=== PATIENT | female | born 1985 | race Caucasian/White ===

== ENCOUNTER 2020-09-27 19:24 | Emergency (ER) | payer BC ==
--- NOTE | 2020-09-27 19:40 | EDM.PDOC ---
ED HPI GENERAL MEDICAL PROBLEM - General Chief Complaint: General Stated Complaint: Pain Time Seen by Provider: 09/27/20 19:40 Source of Information: Reports: Patient History Limitations: Reports: No Limitations - History of Present Illness INITIAL COMMENTS - FREE TEXT/NARRATIVE: Shonna, 34-year-old female, presents with right flank and right-sided abdominal pain. She denies fever or chills today. She is not taking anything for her pain She states yesterday she was having issues with bowel movement but had a good bowel movement roughly 7- 7:15 this evening. States gastric surgery last June with no sequela from that, recently had her final postoperative check and is doing well. No risk activity, or exposures to COVID-19. Onset Date: 09/26/20 Duration: Getting Worse Quality: Reports: Sharp, Stabbing Improves with: Reports: None Worsens with: Reports: Other (Time) Associated Symptoms: Reports: Nausea/Vomiting Right back and abdomen Pain Score (Numeric/FACES): 9 - Related Data Allergies Allergy/AdvReac Type Severity Reaction Status Date / Time No Known Drug Allergies Allergy Other Verified 09/27/20 19:40 Home Meds: Home Meds Fluconazole 150 mg PO WEEKLY 09/27/20 [History] Magnesium Hydroxide [Milk of Magnesia] 30 ml PO DAILY PRN 09/27/20 [History] Multivitamin 1 each PO ASDIRECTED 09/27/20 [History] Non-Formulary Medication [NF Drug] 1 applicful VAG ASDIRECTED 09/27/20 [History] Non-Formulary Medication [NF Drug] 1 each PO BID 09/27/20 [History] Omeprazole 20 mg PO DAILY 09/27/20 [History] Tamsulosin [Tamsulosin 24 Hr] 0.4 mg PO DAILY 14 Days #14 cap.er 09/27/20 [Rx] Past Medical History HEENT History: Reports: None Cardiovascular History: Reports: High Cholesterol Gastrointestinal History: Reports: Other (See Below) (Rayne en Y) 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 - Tobacco Use Tobacco Use Status *Q: Former Tobacco User Tobacco Use Within Last Twelve Months: No Used Tobacco, but Quit: Yes Smoking Cessation Information Provided To Patient: No Second Hand Smoke Exposure: No ED ROS GENERAL - Review of Systems Review Of Systems: Comprehensive ROS is negative, except as noted in HPI. ED EXAM, GENERAL - Physical Exam Exam: See Below Free Text/Narrative:: Alert, oriented, in mild painful distress unable to get comfortable. She states the pain is worse than childbirth. Pain to the right flank going down into the right groin. No cyanosis nor pallor is noted. PERRLA no icterus no injection. HEENT is negative discharge or deformity Moist mucous membranes Neck is soft supple no lymphadenopathy. Thorax is clear no wheezes, no crackles are noted. Cardiac is S1-S2 I do not appreciate murmur, no ectopic beats appreciated. Flank pain to the right to percussion she states is a deep pain negative on the left. Abdomen is soft bowel sounds are present there is tenderness in the right lateral gutter radiating downward with pain to palpation. There is no rebound tenderness. Slight pain to deep palpation of the left lower quadrant. There is no mass nor fullness appreciated over the suprapubic bladder region. She moves her extremities with no difficulty. Skin is warm and dry. Course - Vital Signs Last Recorded V/S: Last Vital Signs Temp 97.8 F 09/27/20 20:01 Pulse 77 09/27/20 20:30 Resp 14 09/27/20 20:30 BP 129/77 09/27/20 20:30 Pulse Ox 96 09/27/20 20:30 - Orders/Labs/Meds Orders: Active Orders 24 hr Category Date Time Status Peripheral IV Care [RC] . DIRECTED Care 09/27/20 19:50 Active Abdomen Pelvis wo Cont [CT] Stat Exams 09/27/20 20:17 Ordered Sodium Chloride 0.9% [Saline Flush] Med 09/27/20 19:50 Active 10 ml FLUSH Q8HR PRN Peripheral IV Insertion Adult [OM.PC] Routine Oth 09/27/20 19:50 Ordered Medication Orders Sodium Chloride (Saline Flush) 10 ml FLUSH Q8HR PRN PRN Reason: keep vein open Labs: Laboratory Tests 09/27/20 09/27/20 09/27/20 Range/Units 19:40 19:40 19:40 WBC 7.43 (5.00-10.00) 10^3/uL RBC 4.80 (3.80-5.50) 10^6/uL Hgb 14.6 (12.0-16.0) g/dL Hct 43.5 (37.0-47.0) % MCV 90.6 (82.0-92.0) fL MCH 30.4 (27.0-31.0) pg MCHC 33.6 (32.0-36.0) g/dL RDW 16.6 H (11.5-14.5) % Plt Count 261 D (150-400) 10^3/uL MPV 11.3 H (7.4-10.4) fL Immature Gran % (Auto) 0.1 (0.0-5.0) % Neut % (Auto) 62.9 (50.0-70.0) % Lymph % (Auto) 25.4 (20.0-40.0) % Wilkin % (Auto) 9.4 H (2.0-8.0) % Eos % (Auto) 1.9 (1.0-3.0) % Baso % (Auto) 0.3 (0.0-1.0) % Neut # (Auto) 4.67 (2.50-7.00) 10^3/uL Lymph # (Auto) 1.89 (1.00-4.00) 10^3/uL Wilkin # (Auto) 0.70 (0.10-0.80) 10^3/uL Eos # (Auto) 0.14 (0.10-0.30) 10^3/uL Baso # (Auto) 0.02 (0.00-0.10) 10^3/uL Immature Gran # (Auto) 0.01 (0.00-0.50) 10^3/uL Sodium 141 (136-145) mmol/L Potassium 3.3 L (3.5-5.1) mmol/L Chloride 103 (98-107) mmol/L Carbon Dioxide 22.7 (21.0-32.0) mmol/L Anion Gap 18.6 H (5-15) mmol/L BUN 8 (7-18) mg/dL Creatinine 0.66 (0.51-1.17) mg/dL Est Cr Clr Drug Dosing 108.07 mL/min Estimated GFR (MDRD) > 60 mL/min Glucose 89 (70-140) mg/dL Lactic Acid 1.0 (0.4-2.0) mmol/L Calcium 9.2 (8.7-10.3) mg/dL Total Bilirubin 0.4 (0.2-1.0) mg/dL AST 30 (15-37) U/L ALT 45 (14-63) U/L Alkaline Phosphatase 131 H (46-116) U/L Total Protein 7.3 (6.4-8.2) g/dL Albumin 3.50 (3.40-5.00) g/dL Amylase 61 (25-125) U/L Lipase 468 H (73-393) U/L HCG, Qual (NEGATIVE) Specimen Type Urine Color (YELLOW) Urine Appearance (CLEAR) Urine pH (5.0-9.0) Ur Specific [place] (1.005-1.030) Urine Protein (NEGATIVE) mg/dL Urine Glucose (UA) (NEGATIVE) mg/dL Urine Ketones (NEGATIVE) mg/dL Urine Occult Blood (NEGATIVE) Urine Nitrite (NEGATIVE) Urine Bilirubin (NEGATIVE) Urine Urobilinogen (0.2-1.0) E.U./dL Ur Leukocyte Esterase (NEGATIVE) Urine RBC (0-5) /HPF Urine WBC (0-5) /HPF Ur Epithelial Cells /LPF Urine Bacteria (NONE TO FEW) /HPF Urine Mucus (NEGATIVE) /LPF 09/27/20 09/27/20 Range/Units 19:40 20:00 WBC (5.00-10.00) 10^3/uL RBC (3.80-5.50) 10^6/uL Hgb (12.0-16.0) g/dL Hct (37.0-47.0) % MCV (82.0-92.0) fL MCH (27.0-31.0) pg MCHC (32.0-36.0) g/dL RDW (11.5-14.5) % Plt Count (150-400) 10^3/uL MPV (7.4-10.4) fL Immature Gran % (Auto) (0.0-5.0) % Neut % (Auto) (50.0-70.0) % Lymph % (Auto) (20.0-40.0) % Wilkin % (Auto) (2.0-8.0) % Eos % (Auto) (1.0-3.0) % Baso % (Auto) (0.0-1.0) % Neut # (Auto) (2.50-7.00) 10^3/uL Lymph # (Auto) (1.00-4.00) 10^3/uL Wilkin # (Auto) (0.10-0.80) 10^3/uL Eos # (Auto) (0.10-0.30) 10^3/uL Baso # (Auto) (0.00-0.10) 10^3/uL Immature Gran # (Auto) (0.00-0.50) 10^3/uL Sodium (136-145) mmol/L Potassium (3.5-5.1) mmol/L Chloride (98-107) mmol/L Carbon Dioxide (21.0-32.0) mmol/L Anion Gap (5-15) mmol/L BUN (7-18) mg/dL Creatinine (0.51-1.17) mg/dL Est Cr Clr Drug Dosing mL/min Estimated GFR (MDRD) mL/min Glucose (70-140) mg/dL Lactic Acid (0.4-2.0) mmol/L Calcium (8.7-10.3) mg/dL Total Bilirubin (0.2-1.0) mg/dL AST (15-37) U/L ALT (14-63) U/L Alkaline Phosphatase (46-116) U/L Total Protein (6.4-8.2) g/dL Albumin (3.40-5.00) g/dL Amylase (25-125) U/L Lipase (73-393) U/L HCG, Qual Negative (NEGATIVE) Specimen Type Urincc Urine Color Melanie H (YELLOW) Urine Appearance Cloudy H (CLEAR) Urine pH 6.0 (5.0-9.0) Ur Specific [place] >= 1.030 (1.005-1.030) Urine Protein 100 H (NEGATIVE) mg/dL Urine Glucose (UA) Negative (NEGATIVE) mg/dL Urine Ketones >=160 H (NEGATIVE) mg/dL Urine Occult Blood Large H (NEGATIVE) Urine Nitrite Negative (NEGATIVE) Urine Bilirubin Small H (NEGATIVE) Urine Urobilinogen 0.2 (0.2-1.0) E.U./dL Ur Leukocyte Esterase Negative (NEGATIVE) Urine RBC Semi-packed (0-5) /HPF Urine WBC 0-5 (0-5) /HPF Ur Epithelial Cells Few /LPF Urine Bacteria Rare (NONE TO FEW) /HPF Urine Mucus Rare H (NEGATIVE) /LPF Meds: Medications Generic Name Dose Route Start Last Admin Trade Name Freq PRN Reason Stop Dose Admin Sodium Chloride 10 ml 09/27/20 19:50 Saline Flush FLUSH Q8HR PRN keep vein open Discontinued Medications Generic Name Dose Route Start Last Admin Trade Name Freq PRN Reason Stop Dose Admin Hydrocodone Bitart/Acetaminophen 2 tab 09/27/20 21:09 09/27/20 21:59 [place] 325-10 Mg PO 09/27/20 21:10 2 tab ONETIME ONE Administration Sodium Chloride 1,000 mls @ 999 mls/hr 09/27/20 19:48 09/27/20 19:52 Normal Saline IV 09/27/20 20:48 999 mls/hr .BOLUS ONE Administration Sodium Chloride Confirm 09/27/20 19:49 09/27/20 19:54 Normal Saline Administered 09/27/20 19:50 Not Given Dose 1,000 mls @ as directed .ROUTE .STK-MED ONE Ketorolac Tromethamine 30 mg 09/27/20 19:44 09/27/20 19:58 Toradol IVPUSH 09/27/20 19:45 30 mg ONETIME ONE Administration Ketorolac Tromethamine 30 mg 09/27/20 20:53 09/27/20 20:56 Toradol IM 09/27/20 20:54 30 mg ONETIME ONE Administration Ketorolac Tromethamine Confirm 09/27/20 20:55 09/27/20 21:14 Toradol Administered 09/27/20 20:56 Not Given Dose 30 mg .ROUTE .STK-MED ONE Ondansetron HCl 8 mg 09/27/20 19:44 09/27/20 19:49 Zofran IVPUSH 09/27/20 19:45 8 mg ONETIME ONE Administration Ondansetron HCl 4 mg 09/27/20 22:01 Zofran IVPUSH 09/27/20 22:02 ONETIME ONE Tamsulosin HCl 0.4 mg 09/27/20 21:10 09/27/20 21:59 Flomax PO 09/27/20 21:11 0.4 mg ONETIME ONE Administration - Re-Assessments/Exams Free Text/Narrative Re-Assessment/Exam: 09/27/20 20:27 She states that she is now drinking 40 to 50 ounces of water daily secondary of reduced stomach capacity. Prior to the surgery she was drinking 100+ ounces a day. This fact likely increases risk of renal lithiasis in general, as well as history of her father having chronic renal lithiasis also. Free Text/Narrative Re-Assessment/Exam: 09/27/20 22:02 Pain is mildly improved in the back but still present in the lower right abdominal gutter. Nausea is returning as well. We will treat with ondanestron 4 mg IV before we pull the IV and will have her take her hydrocodone as soon as she gets home. Departure - Departure Time of Disposition: 21:52 Disposition: Home, Self-Care 01 Condition: Good Clinical Impression: Flank pain, acute, Renal lithiasis - Discharge Information *PRESCRIPTION DRUG MONITORING PROGRAM REVIEWED*: Not Applicable *COPY OF PRESCRIPTION DRUG MONITORING REPORT IN PATIENT FARHEEN: Not Applicable Prescriptions: Tamsulosin [Tamsulosin 24 Hr] 0.4 mg PO DAILY 14 Days #14 cap.er Instructions: Renal Colic, [id number], Kidney Stones, [id number], Flank Pain, Adult, [id number], Dietary Guidelines to Help Prevent Kidney Stones Forms: ED Department Discharge Additional Instructions: increase your water intake as much as you can tolerate. You will need to catch and strain all of your urine. We will give you 2 hydrocodone you may take 1 every 4-6 hours as needed for pain throughout the night. 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 Contact your clinic in the morning as if this does not show improvement consideration for chronic pain dispensing would be given as well as possibility of an ultrasound to determine the position of the stone thus avoiding repeated radiation from a CT scan. Contact your clinic in the morning to discuss reevaluation and pain medication options as well as the option of a renal ultrasound. Sepsis Event Note (ED) - Focused Exam Vital Signs: Vital Signs Temp Pulse Resp BP Pulse Ox 09/27/20 20:30 77 14 129/77 96 09/27/20 20:01 97.8 F 84 16 135/90 98 - Problem List & Annotations (1) Abdominal pain SNOMED Code(s): 47318973 Code(s): R10.9 - UNSPECIFIED ABDOMINAL PAIN Status: Acute Priority: High Qualifiers: Abdominal location: right lower quadrant Qualified Code(s): R10.31 - Right lower quadrant pain (2) Flank pain, acute SNOMED Code(s): 718598017, 807220508 Code(s): R10.9 - UNSPECIFIED ABDOMINAL PAIN Status: Acute Priority: High (3) History of bariatric surgery SNOMED Code(s): 507025893, 797763942 Code(s): Z98.84 - BARIATRIC SURGERY STATUS Status: Chronic Priority: Medium (4) Nausea alone SNOMED Code(s): 053135169 Code(s): R11.0 - NAUSEA Status: Acute Priority: High (5) Hypokalemia SNOMED Code(s): 64601399 Code(s): E87.6 - HYPOKALEMIA Status: Acute Priority: Medium (6) Elevated lipase SNOMED Code(s): 543177794 Code(s): R74.8 - ABNORMAL LEVELS OF OTHER SERUM ENZYMES Status: Acute Priority: Medium (7) Hematuria SNOMED Code(s): 74406006 Code(s): R31.9 - HEMATURIA, UNSPECIFIED Status: Acute Qualifiers: Hematuria type: other microscopic Qualified Code(s): R31.29 - Other microscopic hematuria; R31.2 - Other microscopic hematuria (8) Hydronephrosis due to obstruction of ureter SNOMED Code(s): 437709555 Code(s): N13.2 - HYDRONEPHROSIS WITH RENAL AND URETERAL CALCULOUS OBSTRUCTION Status: Acute Priority: High (9) Renal lithiasis SNOMED Code(s): 45532793 Code(s): N20.0 - CALCULUS OF KIDNEY Status: Acute Priority: High - Problem List Review Problem List Initiated/Reviewed/Updated: Yes - My Orders Last 24 Hours: My Active Orders 09/27/20 19:50 Peripheral IV Care [RC] . DIRECTED Sodium Chloride 0.9% [Saline Flush] 10 ml FLUSH Q8HR PRN Peripheral IV Insertion Adult [OM.PC] Routine 09/27/20 20:17 Abdomen Pelvis wo Cont [CT] Stat - Assessment/Plan Last 24 Hours: My Active Orders 09/27/20 19:50 Peripheral IV Care [RC] . DIRECTED Sodium Chloride 0.9% [Saline Flush] 10 ml FLUSH Q8HR PRN Peripheral IV Insertion Adult [OM.PC] Routine 09/27/20 20:17 Abdomen Pelvis wo Cont [CT] Stat Plan: Increase your water intake as much as you can tolerate. You will need to catch and strain all of your urine. We will give you 2 hydrocodone you may take 1 every 4-6 hours as needed for pain throughout the night. 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 Contact your clinic in the morning as if this does not show improvement consideration for chronic pain dispensing would be given as well as possibility of an ultrasound to determine the position of the stone thus avoiding repeated radiation from a CT scan. Contact your clinic in the morning to discuss reevaluation and pain medication options as well as the option of a renal ultrasound.
[2020-09-27] MEDS ORDERED: Ondansetron 4 MG/2 ML SDV IVPUSH ONE ×2 (19:44→22:01)
[2020-09-27] MEDS ORDERED: Sodium Chloride 0.9% 1,000 ML IV ONE (19:48)
[2020-09-27] MEDS ORDERED: Sodium Chloride 0.9% 1,000 ML ONE (19:49)
[2020-09-27] MEDS ORDERED: Sodium Chloride 0.9% 10 ML Syringe FLUSH PRN (19:50)
[2020-09-27] MEDS: Ketorolac 30 MG/ML SDV IVPUSH ONE ×2 (19:55→19:58)
[2020-09-27 20:13] LABS: ANION GAP 18.6 mmol/L (5-15); CHLORIDE,CL 103 mmol/L (98-107); SODIUM,NA 141 mmol/L (136-145)
[2020-09-27] MEDS ORDERED: Ketorolac 30 MG/ML SDV IM ONE (20:53)
[2020-09-27] MEDS ORDERED: Ketorolac 30 MG/ML SDV ONE (20:55)
[2020-09-27] MEDS ORDERED: Acetaminophen/HYDROcodone 325-10 MG Tab PO ONE (21:09)
[2020-09-27] MEDS ORDERED: Tamsulosin 0.4 MG Cap.ER PO ONE (21:10)
[2020-09-27] MEDS ORDERED: Ondansetron 4 MG/2 ML SDV ONE (22:01)
--- NOTE | 2020-09-28 08:13 | CT ---
[id number] CT/CT Abdomen Pelvis WO IV EXAM: CT Abdomen Pelvis WO IV CLINICAL DATA: RENAL COLIC RT SIDED PAIN FLANK RADIATES TO GROIN. COMPARISON STUDY: None. FINDINGS: Postsurgical changes following gastric bypass. Liver, spleen, gallbladder, pancreas, adrenal glands, and left kidney are unremarkable. 4 mm stone within the mid third of the right ureter. Additionally there is a 3 mm stone within the distal third of the right ureter. There is resulting moderate hydroureteronephrosis. No bowel obstruction or inflammation. No lymphadenopathy, free fluid, or pneumoperitoneum. Scattered changes of spondylosis the spine. No fracture or osseous lesion. IMPRESSION: 1.4 mm stone within the mid third of the right ureter. Additionally there is a 3 mm stone within the distal third of the right ureter. There is resulting moderate hydroureteronephrosis. Sajan Pal DO 09/28/20 [id number] Thank you for allowing us to participate in the care of your patient.
== END 2020-09-27 22:10 | disposition home or self-care (01) ==
LOC: KA.ED 19:24
DX: N13.2 Hydronephrosis with renal and ureteral calculous obstruction (principal); E66.9 Obesity, unspecified; Z87.891 Personal history of nicotine dependence; Z68.31 Body mass index [BMI] 31.0-31.9, adult
CPT/HCPCS: 74176; 80053; 81001; 82150; 83605; 83690; 84703; 85025; 96372; 96374; 96375; 96376; 99284; A9270; J1885; J2405; J7030

== ENCOUNTER 2025-06-07 02:02 | Emergency (ER) | payer BC, OTHER ==
[2025-06-07] MEDS: Sodium Chloride 0.9% 10 ML Syringe FLUSH PRN (02:24)
[2025-06-07] MEDS: Ondansetron 4 MG/2 ML SDV IVPUSH ONE (02:35)
[2025-06-07 02:42] LABS: BASOPHILS ABSOLUTE AUTO 0.03 10^3/uL (0.00-0.10); BASOPHILS PERCENT AUTO 0.3 % (0.0-1.0); EOSINOPHILS ABSOLUTE AUTO 0.16 10^3/uL (0.10-0.30); EOSINOPHILS PERCENT AUTO 1.8 % (1.0-3.0); IMMATURE GRAN ABSOLUTE AUTO 0.00 10^3/uL (0.00-0.04); IMMATURE GRAN PERCENT AUTO 0.0 % (0.0-0.4); LYMPHOCYTES ABSOLUTE AUTO 2.17 10^3/uL (1.00-4.00); LYMPHOCYTES PERCENT AUTO 24.7 % (20.0-40.0); MEAN PLATELET VOLUME 9.9 fL (7.4-10.4); MONOCYTES ABSOLUTE AUTO 0.60 10^3/uL (0.10-0.80); MONOCYTES PERCENT AUTO 6.8 % (2.0-8.0); NEUTROPHILS ABSOLUTE AUTO 5.82 10^3/uL (2.50-7.00); NEUTROPHILS PERCENT AUTO 66.4 % (50.0-70.0); PLATELET COUNT,PLT 356 10^3/uL (150-400); RED BLOOD CELL COUNT 4.08 10^6/uL (3.80-5.50); RED CELL DISTRIBUTION WIDTH 13.9 % (11.5-14.5); WHITE BLOOD CELL COUNT,WBC 8.78 10^3/uL (5.00-10.00)
[2025-06-07 02:52] LABS: HCG QUALITATIVE,SERUM NEGATIVE (NEGATIVE)
[2025-06-07] MEDS: Alum Hydrox/Mag Hydrox/Simeth 30 ML, Lidocaine 2% 15 ML PO ONE (02:54)
[2025-06-07 03:02] LABS: LACTIC ACID 0.8 mmol/L (0.4-2.0)
[2025-06-07 03:12] LABS: ALANINE AMINOTRANSFERASE,ALT 22 U/L (14-63); ASPARTATE AMNIOTRANSFERASE,AST 15 U/L (15-37); BILIRUBIN TOTAL 0.3 mg/dL (0.2-1.0); BLOOD UREA NITROGEN,BUN 14 mg/dL (7-18); CARBON DIOXIDE,CO2 25.5 mmol/L (21.0-32.0); CHLORIDE,CL 107 mmol/L (98-107); CREATININE 0.85 mg/dL (0.51-1.17); EST CRCL DRUG DOSING (CG) 79.96 mL/min; GLUCOSE RANDOM 101 mg/dL (70-140); POTASSIUM,K 4.1 mmol/L (3.5-5.1); PROTEIN TOTAL,TP 6.8 g/dL (6.4-8.2); SODIUM,NA 143 mmol/L (136-145)
[2025-06-07 03:18] LABS: ESTIMATED GFR 89 mL/min (>=60)
[2025-06-07] MEDS: Aluminum Hydroxide/Magnesium Hydroxide/Simethicone Susp 30 ML Cup PO ONE (04:50)
== END 2025-06-07 05:41 | disposition home or self-care (01) ==
LOC: KA.ED 02:02
DX: D50.9 Iron deficiency anemia, unspecified (principal); R10.13 Epigastric pain; R74.8 Abnormal levels of other serum enzymes; R63.8 Other symptoms and signs concerning food and fluid intake; E66.9 Obesity, unspecified; Z88.8 Allergy status to other drugs, medicaments and biological substances; Z98.890 Other specified postprocedural states; Z79.899 Other long term (current) drug therapy; Z68.26 Body mass index [BMI] 26.0-26.9, adult
CPT/HCPCS: 80053; 82150; 83605; 83690; 84703; 85025; 86140; 87040; 96361; 96374; 96375; 99284; 99284-25; A9270-GY; J1171; J1308; J2405; J2470; J7030